=== PATIENT | female | born 1980 | race Caucasian/White ===

== ENCOUNTER → 2020-08-05 | Outpatient (CLI) | payer SELFPAY ==
[~2020-08-05] MED LIST: AZIT500 PO; CRUTCH4 UD; HYDACE5 PO; SERT50 PO; ZOLP10 PO
[2020-08-06 18:11] LABS: HPV 16 Negative (Negative); HPV 18 Negative (Negative); HPV OTHER HR TYPES Negative (Negative)
== END | disposition home or self-care (01) ==
LOC: OLS 16:45 → LAB SHORT 16:45
PROVIDERS: Obstetrics & Gynecology
DX: Z01.419 Encounter for gynecological examination (general) (routine) without abnormal findings (principal)
CPT/HCPCS: 87624; G0123

== ENCOUNTER → 2020-08-12 | Outpatient (CLI) | payer OTHER | END | disposition home or self-care (01) | LOC: LAB SHORT 08:11 → PLD 08:11 | DX: N72 Inflammatory disease of cervix uteri (principal) | CPT/HCPCS: 88305 ==

== ENCOUNTER → 2022-07-24 | Outpatient (CLI) | payer OTHER, BC ==
[2022-07-25 15:10] LABS: HPV 16 Negative (Negative); HPV 18 Negative (Negative); HPV OTHER HR TYPES Positive (Negative)
== END | disposition home or self-care (01) ==
LOC: LAB SHORT 16:14 → LAB 16:14
PROVIDERS: Obstetrics & Gynecology
DX: Z01.419 Encounter for gynecological examination (general) (routine) without abnormal findings (principal)
CPT/HCPCS: 87624; 87625; G0123

== ENCOUNTER → 2023-10-04 | Outpatient (CLI) | payer OTHER, BC ==
[2023-10-19 22:59] LABS: HPV GENOTYPE 16 Not Detected; HPV GENOTYPE 18 Not Detected; HPV HIGH RISK Detected; HPV SOURCE Vaginal
== END ==
LOC: LAB SHORT 10:17 → LAB 10:17
PROVIDERS: Obstetrics & Gynecology
DX: Z01.419 Encounter for gynecological examination (general) (routine) without abnormal findings (principal)
CPT/HCPCS: 87624; G0123

== ENCOUNTER → 2023-10-30 | Outpatient (CLI) | payer OTHER, BC | LOC: LAB SHORT 13:46 → LAB 13:46 | DX: N72 Inflammatory disease of cervix uteri (principal); R87.619 Unspecified abnormal cytological findings in specimens from cervix uteri; N84.1 Polyp of cervix uteri | CPT/HCPCS: 88305; 88342 ==

== ENCOUNTER → 2025-01-02 | Outpatient (CLI) | payer OTHER, BC | LOC: LAB 13:12 → LAB SHORT 13:12 | DX: N93.9 Abnormal uterine and vaginal bleeding, unspecified (principal) | CPT/HCPCS: 88305 ==

== ENCOUNTER → 2025-01-02 | Outpatient (CLI) | payer OTHER, BC ==
[2025-01-08 06:14] LABS: HPV HIGH RISK BY TMA Not Detected; HPV SOURCE Cervical/Vag
== END | disposition home or self-care (01) ==
LOC: LAB 12:42 → LAB SHORT 12:42
PROVIDERS: Obstetrics & Gynecology
DX: Z01.419 Encounter for gynecological examination (general) (routine) without abnormal findings (principal)
CPT/HCPCS: 87624; G0123